=== PATIENT | female | born 1995 | race Caucasian/White ===

== ENCOUNTER 2018-12-26 18:55 | Emergency (ER) | payer SELFPAY | END 2018-12-26 21:41 | disposition left against medical advice (07) | LOC: EMS 18:57 | DX: S41.139A Puncture wound without foreign body of unspecified upper arm, initial encounter (principal); Z53.21 Procedure and treatment not carried out due to patient leaving prior to being seen by health care provider; W46.1XXA Contact with contaminated hypodermic needle, initial encounter; Y93.89 Activity, other specified; Y92.89 Other specified places as the place of occurrence of the external cause; Y99.8 Other external cause status ==